=== PATIENT | female | born 1945 | race Caucasian/White ===

== ENCOUNTER 2019-03-23 06:23 | Day surgery (SDC) | payer MEDICARE ==
[2019-03-22 12:05] VITALS: BP 149/82
[~2019-03-23] VITALS: Ht 160 cm; Wt 52.0 kg
[~2019-03-23 06:23] MED LIST: MULT-516 PO; OMEP40CA42 PO; PILO5TAB PO; STATIN PO
[2019-03-23] MEDS ORDERED: LACTATED RINGERS 1,000 ML IV SCH (07:03)
[2019-03-23] MEDS ORDERED: PROPOFOL 10 MG/ML, 20ML ONE (07:17)
[2019-03-23] MEDS ORDERED: SUCCINYLCHOLINE 20 MG/ML, 10ML ONE (07:17)
[2019-03-23] MEDS ORDERED: ONDANSETRON 2MG/ML, 2ML ONE (07:17)
[2019-03-23] MEDS ORDERED: LIDOCAINE 1%-EPI 1:100K, 20ML ONE (07:30)
[2019-03-23] MEDS ORDERED: MIDAZOLAM 1 MG/ML, 2ML ONE (07:45)
[2019-03-23] MEDS ORDERED: MEPERIDINE/PF 25MG/0.5ML IVPush PRN (08:00)
[2019-03-23] MEDS ORDERED: hydrALAzine 20 MG/ML, 1ML IV PRN (08:00)
[2019-03-23] MEDS ORDERED: LABETALOL 5MG/ML, 20ML IV PRN (08:00)
[2019-03-23] MEDS ORDERED: ONDANSETRON 2MG/ML, 2ML IVPush PRN (08:00)
[2019-03-23] MEDS ORDERED: PROMETHAZINE 25 MG/ML, 1ML IV PRN (08:00)
[2019-03-23] MEDS ORDERED: METOCLOPRAMIDE 5 MG/ML, 2ML IV PRN (08:00)
[2019-03-23] MEDS ORDERED: HYDROmorphone 1 MG/ML, 1ML INJ IV PRN (08:00)
[2019-03-23] MEDS ORDERED: OXYcodone 5 MG/5 ML ORAL.SOL UDC PO PRN (08:00)
[2019-03-23] MEDS ORDERED: KETOROLAC 30 MG/1 ML IV PRN (08:00)
[2019-03-23] MEDS ORDERED: FENTANYL PF 100 MCG/2ML IV PRN (08:00)
[2019-03-23] MEDS ORDERED: ALBUTEROL SULFATE 2.5 MG/3 ML NPPB PRN (08:00)
[2019-03-23] MEDS ORDERED: LIDOCAINE 1%-EPI 1:100K, 20ML INFIL ONE (08:02)
[2019-03-23] MEDS ORDERED: ACETAMINOPHEN 650 MG/20.3 ML UDC ONE (08:30)
[2019-03-23] MEDS ORDERED: ACETAMINOPHEN 650 MG/20.3 ML UDC PO ONE (08:30)
== END 2019-03-23 09:50 | disposition home or self-care (01) ==
LOC: OUT 06:23
PROVIDERS: ATTEND Otolaryngology
DX: J38.1 Polyp of vocal cord and larynx (principal); Z79.899 Other long term (current) drug therapy; Z85.21 Personal history of malignant neoplasm of larynx; Z92.3 Personal history of irradiation
CPT/HCPCS: 31541; 88305; 93005; J0330; J2250; J2405; J2704; J3490; J7120